=== PATIENT | female | born 1960 | race Caucasian/White ===

== ENCOUNTER → 2016-05-31 | Outpatient (CLI) | payer BC ==
[2016-05-31 14:35] LABS: Basophils % (A) 1 %; CH 31.8; Eosinophils # (A) 0.2 k/uL (0-0.7); Eosinophils % (A) 3 %; HCT 41.1 % (34.0-46.0); HDW 2.66; HGB 13.4 gm/dL (11.4-16.0); Luc # (Auto) 0.15; Luc % (Auto) 3; Lymphocytes # (A) 1.7 k/uL (1.0-4.8); Lymphocytes % (A) 33 %; MCH 31.5 pg (25.0-35.0); MCHC 32.6 g/dL (31.0-37.0); MCV 96.8 fL (80.0-100.0); Mean Platelet Volume 6.9; Monocytes # (A) 0.3 k/uL (0-1.0); Monocytes % (A) 5 %; Neutrophils # (A) 2.8 k/uL (1.3-7.7); Neutrophils % (A) 55 %; RBC 4.24 m/uL (3.80-5.40); RDW 13.4 % (11.5-15.5); WBC 5.2 k/uL (3.8-10.6)
== END | disposition home or self-care (01) ==
LOC: LABPAT 14:02
PROVIDERS: ATTEND Obstetrics & Gynecology
DX: Z01.810 Encounter for preprocedural cardiovascular examination (principal); Z01.812 Encounter for preprocedural laboratory examination; I10 Essential (primary) hypertension
CPT/HCPCS: 36415; 85025; 93005

== ENCOUNTER → 2016-05-31 | Outpatient (CLI) | payer BC ==
--- NOTE | 2016-06-03 12:19 | MM ---
Reason for exam: screening (asymptomatic). Last mammogram was performed 1 year and 2 months ago. History: Patient is postmenopausal. Family history of breast cancer in 2 paternal aunts at age 50 and breast cancer in paternal grandmother. Taking estrogen for 1 year. Taking progesterone for 2 years. Physical Findings: A clinical breast exam by your physician is recommended on an annual basis and results should be correlated with mammographic findings. MG Screening Mammo w CAD Bilateral CC and MLO view(s) were taken. Prior study comparison: April 10, 2015, bilateral MG screening mammo w CAD. March 22, 2014, bilateral MG screening mammo w CAD. The breast tissue is heterogeneously dense. This may lower the sensitivity of mammography. Asymmetric breast tissue in the right breast 2-3cm from nipple, 12 o'clock with associated indeterminate microcalcifications. This finding is changed when compared with previous exams. ASSESSMENT: Incomplete: need additional imaging evaluation, BI-RAD 0 RECOMMENDATION: Special view mammogram of the right breast. If lesion persists on supplemental views, image directed ultrasound is recommended. [facility] will attempt to contact patient to return for supplemental views and ultrasound if indicated.
== END | disposition home or self-care (01) ==
LOC: RADMAMWWP 14:18
PROVIDERS: ATTEND Obstetrics & Gynecology
DX: Z12.31 Encounter for screening mammogram for malignant neoplasm of breast (principal); Z80.3 Family history of malignant neoplasm of breast

== ENCOUNTER 2016-06-10 06:44 | Day surgery (SDC) | payer BC ==
--- NOTE | 2016-06-06 08:53 | HP ---
DATE OF ADMISSION: 06/10/2016 This is a 56-year-old white female, 3, para 2-0-1-2, who presents with a history of postmenopausal bleeding. An ultrasound was performed in the office on 05/07/2016 which revealed increased endometrial thickness, 1.2 cm, with slightly irregular texture. In addition, there were several uterine fibroids noted. Ovaries appeared normal bilaterally. Patient has consented for hysteroscopy and dilatation and curettage of the uterine cavity. Review of systems is otherwise negative. PAST MEDICAL HISTORY: Significant for abnormal Pap smear in the past, most recent Pap smear within normal limits. She has a history of hypertension, molluscum contagiosum, as well as myocardial infarction in 2011. Past surgical history is significant for sections x2, 1990 and 1992, and colposcopy 2012. CURRENT MEDICATIONS: 1. Activella daily. 2. Baby aspirin daily. 3. Biotin daily. 4. Fish oil daily. 5. Multivitamin daily. 6. Carvedilol 3 times daily. ALLERGIES: None known. FAMILY HISTORY: Significant for breast cancer, hypertension, myocardial infarction, lung cancer. REPRODUCTIVE HISTORY: Two sections, one spontaneous miscarriage not requiring D&C. SOCIAL HISTORY: Patient is , and she is hairdresser at a local salon, she has never been a smoker, she has occasional alcohol use. On exam, this is a pleasant white female, 5 foot 2.25 inches, 107 pounds, BMI 19, vital signs are stable including a blood pressure today of 140/82, patient is afebrile. The HEENT exam reveals no thyromegaly, good dentition, no cervical lymphadenopathy, normal range of motion in the neck. Breast exam reveals breasts to be bilaterally symmetric, no skin dimpling, nipple discharge, axillary adenopathy or discernible lesions or masses. Chest is clear to auscultation in all parada anteriorly and posteriorly. Cardiac exam reveals regular rate and rhythm without murmur, click or rub. Abdomen is soft and tender, scaphoid, active bowel sounds, no organosplenomegaly, no CVA tenderness. Extremities reveal no edema, good range of motion, good peripheral pulses. On pelvic exam, cervix is small, firm and mobile, uterus is anteverted, small and mobile, nontender. Adnexa are negative to palpation bilaterally. Rectal exam reveals FIT negative stool, good tone. IMPRESSION: Postmenopausal bleeding with increased endometrial thickness noted sonographically, menopausal on hormone replacement therapy. PLAN: We will proceed with hysteroscopy, dilatation and curettage of the uterine cavity. The risks, benefits, and alternatives of this plan have been reviewed in detail. All questions have been answered. The ACOG pamphlet had been given to the patient, which she has reviewed. Risks of potential bleeding, infection, perforation or damage to the bowel, bladder, ureters, the uterine cavity have all been described. All questions have been answered.
[2016-06-06 15:39] VITALS: BMI 18.6
[~2016-06-10 06:44] MED LIST: DEXAMETHASONE SOD PHOSPHATE 10 MG/ML 1 ML VIAL IV ONE; HYDROmorphone 1 MG/ML 1 ML SYRINGE IVP PRN; LACTATED RINGERS 1,000 ML IV SCH; LIDOCAINE 1% 20 ML VIAL (10MG/ML) FOR IV START INTRADERMA PRN; Pre Op ABX Message 1 EACH MISC MISCELLANE ONE; SCOPOLAMINE 1.5MG/72HR PATCH TRANSDERM ONE
[2016-06-10] MEDS ORDERED: ONDANSETRON 4 MG/2 ML VIAL IVP ONE (07:11)
[2016-06-10] MEDS ORDERED: MIDAZOLAM 2 MG/2 ML VIAL ONE (07:34)
[2016-06-10] MEDS ORDERED: KETOROLAC 30 MG/ML 1 ML VIAL ONE (07:34)
[2016-06-10] MEDS ORDERED: PROPOFOL 10 MG/ML 20 ML VIAL IV ONE (07:34)
--- NOTE | 2016-06-10 07:59 | P.OP ---
Date of Procedure: 06/10/16 Preoperative Diagnosis: This menopausal bleeding, increased endometrial thickness sonographically Postoperative Diagnosis: Cervical stenosis Procedure(s) Performed: Dilatation and curettage of the uterine cavity, hysteroscopy Anesthesia: DELMARA Surgeon: Melody Goff Hotel Reservation Agent #1: Stated None Estimated Blood Loss (ml): 20 IV fluids (ml): 200 Urine output (ml): 100 Pathology: other (Uterine curettings) Condition: stable Disposition: PACU Description of Procedure: Patient is brought to the operating suite where a general anesthetic is administered without difficulty. She's placed in the dorsal lithotomy position. The appropriate timeout is performed to assure proper patient and procedural identification. No antibiotics are deemed necessary. The cervix, vagina, perineal bodies are all prepped and draped in usual sterile fashion. Examination under anesthesia reveals a small mobile anteverted uterus, negative adnexa bilaterally. Bladder is drained for approximately 100 mL of clear yellow urine. Weighted speculum was placed into the vagina and the anterior lip of the cervix is grasped with a double-tooth tenaculum. Upon inspecting the cervix, it is noted to be stenotic. The very smallest dilator is gently teased into the endocervical canal for the initiation of dilatation. The Hanks dilators are then used easily and in succession. The hysteroscope was placed into the cavity and with saline infusion the cavity is distended and inspected. There is a fair amount of tissue noted, no obvious polyps, fibroids, septa or defects. Bilateral ostia are noted. The hysteroscope was removed. Cervix is then dilated to 18 mm. A medium sharp curette is used and the cavity is curetted in all 4 quadrants. The "cry the uterus" is appreciated. Polyp forceps are then utilized to assure that the cavity is completely cleared. All instruments are removed. All sponge needle and enhancement counts are correct. Patient is brought back to the recovery room in very good condition with stable vital signs including blood pressure 132/79, pulse 71, 98% O2 saturation. Toradol is given prior to leaving the operative suite. Complications: None.
[2016-06-10 08:11] VITALS: TEMP 97.2
[2016-06-10 08:47] VITALS: RESP 18
[2016-06-10 09:07] VITALS: BP 137/80; PULSE 78
== END 2016-06-10 09:20 | disposition home or self-care (01) ==
LOC: OR 06:44
PROVIDERS: ATTEND Obstetrics & Gynecology
DX: N84.0 Polyp of corpus uteri (principal); N88.2 Stricture and stenosis of cervix uteri; N95.0 Postmenopausal bleeding; R93.8 Abnormal findings on diagnostic imaging of other specified body structures; D25.9 Leiomyoma of uterus, unspecified; I10 Essential (primary) hypertension; I25.2 Old myocardial infarction; Z79.82 Long term (current) use of aspirin; Z79.899 Other long term (current) drug therapy
CPT/HCPCS: 81025; 88305; 58558; J2250; J1100; J2405; J1885; J2704

== ENCOUNTER → 2016-06-12 | Outpatient (CLI) | payer BC ==
--- NOTE | 2016-06-12 11:20 | MM ---
Reason for exam: additional evaluation requested from abnormal screening. Last mammogram was performed less than 1 month ago. History: Patient is postmenopausal. Family history of breast cancer in 2 paternal aunts at age 50 and breast cancer in paternal grandmother. Taking estrogen beginning at age 54. Taking progesterone beginning at age 54. Physical Findings: Nurse did not find any significant physical abnormalities on exam. MG Work Up Mamm w CAD RT LM, CC with magnification, and LM with magnification view(s) were taken of the right breast. Prior study comparison: May 31, 2016, bilateral MG screening mammo w CAD. April 10, 2015, bilateral MG screening mammo w CAD. No significant new findings when compared with previous films. These results were verbally communicated with the patient and result sheet given to the patient on 06/12/16. ASSESSMENT: Incomplete: need additional imaging evaluation, BI-RAD 0 RECOMMENDATION: Ultrasound of the right breast.
--- NOTE | 2016-06-12 11:22 | USB ---
Reason for exam: additional evaluation requested from abnormal screening. History: Patient is postmenopausal. Family history of breast cancer in 2 paternal aunts at age 50 and breast cancer in paternal grandmother. Taking estrogen beginning at age 54. Taking progesterone beginning at age 54. US Breast Workup Limited RT Right breast ultrasound demonstrates a 8 x 5 x 7mm irregular, spiculated, solid, hypoechoic lesion at 12 o'clock and a 4 x 3 x 3mm oval, cystic lesion at 1 o'clock. These results were verbally communicated with the patient and result sheet given to the patient on 06/12/16. ASSESSMENT: Suspicious, BI-RAD 4 RECOMMENDATION: Ultrasound core biopsy of the right breast. Called with mammographic findings and has scheduled an appointment for the patient for 06/17/16 at 3:[address] Goff. PRELIMINARY REPORT CALLED AND FAXED TO DR. GOFF ON 06/12/16 AT 300/TMP.
== END | disposition home or self-care (01) ==
LOC: RADMAMWWP 09:19
PROVIDERS: ATTEND Obstetrics & Gynecology
DX: R92.8 Other abnormal and inconclusive findings on diagnostic imaging of breast (principal)
CPT/HCPCS: 76642; G0206

== ENCOUNTER → 2016-07-29 | Day surgery (SDC) | payer BC ==
[~2016-07-29] MED LIST changes: +BACITRACIN OINT 1 EACH PACKET TOPICAL ONE; -DEXAMETHASONE SOD PHOSPHATE 10 MG/ML 1 ML VIAL IV ONE; -HYDROmorphone 1 MG/ML 1 ML SYRINGE IVP PRN; -LACTATED RINGERS 1,000 ML IV SCH; -LIDOCAINE 1% 20 ML VIAL (10MG/ML) FOR IV START INTRADERMA PRN; +LIDOCAINE 1% INJ 10MG/ML (20 ML MDV) ONE; -Pre Op ABX Message 1 EACH MISC MISCELLANE ONE; -SCOPOLAMINE 1.5MG/72HR PATCH TRANSDERM ONE
--- NOTE | 2016-07-29 09:38 | USB ---
EXAMINATION TYPE: US biopsy breast VAD RT, MG diagnostic mammo RT wo CAD DATE OF EXAM: 07/29/2016 9:16 AM CLINICAL HISTORY: N63 BREAST LUMP. TECHNIQUE: Ultrasound guided core biopsy of right 12:00 breast. COMPARISON: NONE FINDINGS: The procedure of ultrasound guided core biopsy was explained to the patient. Benefits, alternatives, and risks were discussed. An informed consent was then obtained. The patient was placed in supine positioning for imaging and for the procedure. The overlying skin was prepped and draped in usual sterile fashion. Lidocaine was used as anesthetic into the skin and subcutaneous tissue up to area of concern in the right breast. A raj was made with surgical scalpel. 5 core samples were obtained. Under ultrasound guidance, a 12-gauge vacuum assisted biopsy gun device was used to obtain core samples. Following this, a biopsy clip was left in lesion. Postprocedural mammogram demonstrates deployment of clip device. The patient tolerated the procedure well without any immediate complication. The patient was kept in the radiology department for short stay after the procedure and then discharged home in stable condition. IMPRESSION: Successful, uncomplicated ultrasound guided core biopsy of area of concern in the right breast, full pathology results to follow. Pathology Results: Malignant BREAST, RIGHT, ULTRASOUND CORE BIOPSY: DUCT CARCINOMA IN SITU. Recommendation Surgical consult of the right breast. ZOILA
--- NOTE | 2016-07-30 09:10 | USB ---
Reason for exam: clinical finding. History: Patient is postmenopausal. Family history of breast cancer in 2 paternal aunts at age 50 and breast cancer in paternal grandmother. Taking estrogen beginning at age 54. Taking progesterone beginning at age 54. US Breast LT Left breast ultrasound includes all four quadrants, the retroareolar region and axilla. Finding demonstrate a 6 x 3 x 4mm lobular, hypoechoic cluster at 1 o'clock, a 3 x 2 x 3mm oval, too small to characterize lesion at 3 o'clock, a 4 x 1 x 4mm oval, mixed lesion at 6 o'clock and a 6 x 3 x 5mm oval, mixed lesion at 11 o'clock. These results were verbally communicated with the patient and result sheet given to the patient on 07/29/16. ASSESSMENT: Probably benign, BI-RAD 3 RECOMMENDATION: Ultrasound of the left breast in 6 months.
== END ==
LOC: RADUSWWP 07:48 → EDSTATUS 08:00
PROVIDERS: ATTEND Surgery
DX: D05.11 Intraductal carcinoma in situ of right breast (principal)
CPT/HCPCS: 88305; 88342; 88341; 19083; 76641; G0206; A4648; J2001

== ENCOUNTER 2016-08-21 09:35 | Day surgery (SDC) | payer BC ==
[2016-08-20 10:02] VITALS: BMI 18.6
--- NOTE | 2016-08-21 07:18 | P.GSHP ---
History of Present Illness H&P Date: 08/21/16 Chief Complaint: Right breast cancer 56 yrs old female presents with biopsy proven right breast DCIS at 12 o clock. She presented with abnormal mammogram , followed by right breast US. No prior breast bx. No back pain, muscle pain. No weight loss or loss of appetite. - Review of Systems All systems: negative (stated in [place]) Past Medical History Past Medical History: Hypertension, Myocardial Infarction ([place]) Last Myocardial Infarction Date:: 2011 History of Any Multi-Drug Resistant Organisms: None Reported Past Surgical History: Section, Heart Catheterization Additional Past Surgical History / Comment(s): D&C , Breast bx. Past Anesthesia/Blood Transfusion Reactions: No Reported Reaction Past Psychological History: No Psychological Hx Reported Smoking Status: Never smoker Past Alcohol Use History: None Reported Past Drug Use History: None Reported - Past Family History Mother Family Medical History: No Reported History Medications and Allergies Home Medications Medication Instructions Recorded Confirmed Type Ascorbic Acid [Vitamin C] 500 mg PO DAILY 06/06/16 08/20/16 History Aspirin 81 mg PO DAILY 06/06/16 08/20/16 History Biotin 5 mg PO DAILY 06/06/16 08/20/16 History Carvedilol [Coreg] 6.25 mg PO HS 06/06/16 08/20/16 History Carvedilol [Coreg] 12.5 mg PO QAM 06/06/16 08/20/16 History Estrogen(Unknown Dose) 1 tab PO DAILY 06/06/16 08/20/16 History [place]-3 Fatty Acids/Fish Oil [Fish 1 each PO DAILY 06/06/16 08/20/16 History Oil 1,000 mg Softgel] Calcium Carbonate [Calcium] 600 mg PO DAILY 08/20/16 08/20/16 History Allergies Allergy/AdvReac Type Severity Reaction Status Date / Time No Known Allergies Allergy Verified 08/20/16 09:42 Surgical - Exam HEENT: No pallor, no icterus Lymphatic: No axillary, inguinal and cervical swellings. Respiratory: Bilateral breath sound present Cardiovascular: S1, S2 present Abdomen: Soft, nontender, non distended , no hepatosplenomegaly Breast- Right breast -no well defined mass , no nipple retraction or skin changes Results - Imaging Additional studies: Right breast US and mammogram reviewed. Assessment and Plan (1) Hypertension Status: Acute (2) Ductal carcinoma in situ (DCIS) of right breast Status: Acute Plan: 1. Right breast wire loc lumpectomy 2. Informed consent obtained . 3. Risks , benefits and potential complications explained. . Bleeding, infection , positive margins requiring re -excision discussed 4. Post surgery radiation and endocrine therapy discussed 5. Radiation and medical oncology consult 6. Ancef 2 gm [id number] 7. Bilateral SCDs 8. Heparin 5000 Units SQx 1
[~2016-08-21 09:35] MED LIST changes: -BACITRACIN OINT 1 EACH PACKET TOPICAL ONE; +DEXAMETHASONE SOD PHOSPHATE 10 MG/ML 1 ML VIAL IV ONE; +FAMOTIDINE 20 MG/2 ML VIAL IV PRN; +HEPARIN SODIUM,PORCINE 5,000 UNIT/ML 1 ML VIAL SQ ONE; +HYDROmorphone 1 MG/ML 1 ML SYRINGE IVP PRN; +LACTATED RINGERS 1,000 ML IV SCH; +LIDOCAINE 1% 20 ML VIAL (10MG/ML) FOR IV START INTRADERMA PRN; -LIDOCAINE 1% INJ 10MG/ML (20 ML MDV) ONE; +MIDAZOLAM 2 MG/2 ML VIAL IV PRN; +Pre Op ABX Message 1 EACH MISC MISCELLANE ONE; +SCOPOLAMINE 1.5MG/72HR PATCH TRANSDERM ONE
[2016-08-21] MEDS ORDERED: ALPRAZolam 0.5 MG TAB PO STA (10:04)
[2016-08-21] MEDS ORDERED: LIDOCAINE 1% INJ 10MG/ML (20 ML MDV) SQ ONE (10:53)
[2016-08-21] MEDS ORDERED: LIDOCAINE 1% INJ 10MG/ML (20 ML MDV) ONE (11:59)
[2016-08-21] MEDS ORDERED: PROPOFOL 10 MG/ML 20 ML VIAL IV ONE (11:59)
[2016-08-21] MEDS ORDERED: MIDAZOLAM 2 MG/2 ML VIAL ONE (11:59)
[2016-08-21] MEDS ORDERED: SUCCINYLCHOLINE CHLORIDE 100 MG/5 ML SYR IV ONE (11:59)
[2016-08-21] MEDS ORDERED: fentaNYL (PF) 50 MCG/ML 2 ML AMP ONE (11:59)
[2016-08-21] MEDS ORDERED: ONDANSETRON 4 MG/2 ML VIAL ONE (11:59)
[2016-08-21] MEDS ORDERED: SODIUM CHLORIDE 0.9% 50 ML with ceFAZolin 2,000 MG IV ONE ×2 (12:20)
[2016-08-21] MEDS ORDERED: BUPIVACAIN-EPI 0.25%-1:200,000 30 ML VIAL SQ ONE ×2 (12:32)
--- NOTE | 2016-08-21 13:27 | MM ---
EXAM: Needle localization with wire placement. CLINICAL HISTORY: Newly diagnosed right-sided breast cancer TECHNIQUE: Needle localization with wire placement and surgical excision of area of concern in the right breast. COMPARISON: Right breast mammogram and ultrasound July 29, 2016 and older studies. FINDINGS: The procedure of needle localization with wire placement and than surgical excision was explained to the patient. Benefits, alternatives, and risks were discussed. An informed consent was then obtained. The shortest pathway for procedure was chosen. Shortest pathway was medial approach. The overlying skin was prepped and draped in usual sterile fashion. Lidocaine buffered with bicarbonate was used as anesthetic into the skin and subcutaneous tissue up to the level of area of concern. A 5 cm needle was used. It was placed via a medial approach under mammographic guidance. Subsequent 90 degrees mammogram show the needle to be in satisfactory position relative to the targeted area. At this point, wire was placed and the needle was withdrawn. The wire was fixed to patient's skin. Images were marked for surgeon. The patient tolerated the procedure well without any immediate complication. The patient was kept in the radiology department for short stay after the procedure and then taken to surgery for surgical excision. Targeted biopsy clip and wire are identified in specimen mammogram. The patient was kept in hospital for short stay after the procedure and then discharged home in stable condition. IMPRESSION: Successful, uncomplicated needle localization with wire placement and surgical excision of targeted biopsy clip in the right breast, full pathology results to follow. Pathology Results: Malignant A. BREAST, RIGHT: DUCTAL CARCINOMA IN SITU (DCIS), MARGINS NEGATIVE. BACKGROUND PROLIFERATIVE FIBROCYSTIC CHANGES AND INTRADUCTAL PAPILLOMA. SEE SURGICAL PATHOLOGY CANCER CASE SUMMARY. B. BREAST, RIGHT, NEW SUPERIOR MARGIN, EXCISION: BENIGN SKIN, SUBCUTANEOUS TISSUE AND BREAST TISSUE WITH PROCEDURAL RELATED CHANGES. NEGATIVE FOR DCIS. Recommendation Appropriate oncologic management. MTDD
[2016-08-21] MEDS ORDERED: LACTATED RINGERS 1,000 ML IV ONE (13:28)
[2016-08-21 13:53] VITALS: TEMP 97
--- NOTE | 2016-08-21 13:56 | P.OP ---
Date of Procedure: 08/21/16 Preoperative Diagnosis: Right breast cancer, DCIS at 12 o clock Postoperative Diagnosis: Same Procedure(s) Performed: Right breast wire localization lumpectomy Insertion of biosorb , low profile 3x2 cm Total tissue removed =18 gm Implants: BioZorb 3x2 cm, low profile Lot no. [id number] Exp: 2018-10-21 Anesthesia: GETA, local Surgeon: Stacy Valdivia Estimated Blood Loss (ml): 5 Pathology: other Condition: stable Disposition: PACU Indications for Procedure: 56 years old female presents with right breast DCIS at 12 o'clock position. She underwent wire localization by radiology. Operative Findings: Patient has small breast. The wire entered the skin between 12 and 1 o clock superiorly in the direction of nipple. Additional anterior superior shave margin sent which included skin( anterior margin) and black ink as the new superior margin Description of Procedure: The mammogram films from wire localization biopsy were reviewed. The patient was brought to the operating room and placed in supine position with both arms out. General anesthesia was given as per anesthesia team. The excess wire was cut and right breast was prepped using ChloraPrep. Sterile drapes were applied. A timeout was performed to verify correct patient, correct procedure and correct side. Patient was confirmed to receive perioperative IV antibiotics , heparin 5000 units subcutaneous injection for DVT prophylaxis and bilateral SCDs. The wire was exiting the skin between 12 and 1 o clock. A 3 cm horizontal skin incision was made along natural skin crease along the superior areola border overlying the wire. Superior and inferior subcutaneous flaps were raised in the direction of wire. A 2 cm circumferential breast tissue was removed around the wire and breast beyond the tip of the wire was included in the specimen. The specimen was then labeled with different colors as per the protocol. It was sent off as a specimen for pathology. The resulting defect was irrigated with normal saline and checked for hemostasis. Excision was carried deep to the level of chest wall and superiorly additional margin was taken including skin and subcutaneous . The defect measured 5.2x 4.1x1.7 cm with additional superior margin including a rim of skin measuring 3.4x 2.6x0.8 cm A low profile 3x2 cm Biozorb was sutured in the cavity which was sutured to chest wall with 3-0 Vicryl. Total tissue removed 16gm + 2gm = 18 gm.The resulting defect was closed in 3 layers using running 3-0 Quill to approximate the surrounding breast tissue, interrupted sutures of 3-0 Vicryl to approximate deep dermis, followed by running subcuticular stitches of 4-0 Monocryl. Dermabond skin glue was applied. The sponge, instrument and needle count were correct 2. Phone formation received during surgery that the area of concern along with the clip and wire was included in the specimen. Xray of the specimen reviewed. Patient tolerated the procedure well and was taken to post anesthesia care unit in stable condition. Final Pathologic Diagnosis A. BREAST, RIGHT: DUCTAL CARCINOMA IN SITU (DCIS), MARGINS NEGATIVE. BACKGROUND PROLIFERATIVE FIBROCYSTIC CHANGES AND INTRADUCTAL PAPILLOMA. SEE SURGICAL PATHOLOGY CANCER CASE SUMMARY. B. BREAST, RIGHT, NEW SUPERIOR MARGIN, EXCISION: BENIGN SKIN, SUBCUTANEOUS TISSUE AND BREAST TISSUE WITH PROCEDURAL RELATED CHANGES. NEGATIVE FOR DCIS. Notes SURGICAL PATHOLOGY CANCER CASE SUMMARY - DCIS OF THE BREAST (Resection) Procedure: Excision with wire guided localization. Specimen Laterality: Right. Size (Extent) of DCIS: Estimated size (extent) of DCIS: at least 5 mm by direct measurement. Histologic Type: Ductal carcinoma in situ. Classified as Tis (DCIS). Nuclear Grade: Grade 1-2, see comment. Necrosis: Present, central (expansive comedo necrosis). Margins: Margins uninvolved by DCIS. Distance of DCIS from Closest Margin: less than 2 mm, orange inked (lateral) margin. See comment. Pathologic Staging (pTNM): Primary Tumor: Ductal carcinoma in situ (pTis (DCIS)). Regional Lymph Nodes: Regional lymph nodes cannot be assessed (pNX). Distant Metastasis: Not applicable. Additional Pathologic Findings: Intraductal papilloma, margins negative. Proliferative fibrocystic changes including focal usual type ductal hyperplasia , microcalcifications and focal fibroadenomatoid hyperplasia. Previous biopsy site changes. Ancillary Studies: ER and ID studies were performed on the previous core biopsy ([id number]). Comment: Sections examined show a focus of residual grade 2 DCIS adjacent to the previous biopsy site measuring 5 mm in greatest dimension seen in blocks A6 and A7. This focus measures 2 mm from the nearest black inked (superior) margin. CK 5/6 and p63 immunoperoxidase stains performed on blocks A6 and A7 and evaluated with appropriate controls highlight a myoepithelial layer surrounding the atypical ducts. The atypical intraductal epithelial cells are negative for CK 5/6. The immunostaining results confirm DCIS. Additionally, there is a secondary focus of grade 1 DCIS away from the biopsy cavity measuring 3 mm in greatest dimension, identified in block A4. This focus measures less than 2 mm from the closest (orange inked/lateral) margin. Gross Description A. Specimen is labeled right breast and consists of a 16 gram oriented right lumpectomy specimen that measures 5.2 cm from medial to lateral, 4.1 cm from anterior to posterior and 1.7 cm from superior to inferior. A wire localization needle enters on the medial aspect and the specimen is accompanied by a radiograph and a picture showing a circled radiologic clip. The specimen is inked by surgeon as follows: anterior blue, inferior green, superior black, medial yellow, lateral orange and posterior alexandra. The specimen is serially sectioned beginning at the end opposite the needle tip insertion (orange ink) and near central is a white mass with lobulated borders that measure 0.7 x 0.7 x 0.4 cm. The mass grossly comes to within 0.3 cm of the closest black inked margin and the clip is identified adjacent to the mass. Throughout the remaining parenchya are areas of dense, white, nodular and cystic fibrous tissue which aggregate to approximately 40% of the parenchyma. The remaining parenchyma is grossly normal yellow adipose tissue and no other discrete lesions or masses are identified or palpated. Each cross section of the mass is sampled or entirely submitted sequentially from lateral to medial in 10 cassettes with first two cross sections entirely submitted in cassette 1, next six cross sections sampled in cassettes 2-4 (two cross sections sampled each cassette), one cross section sampled in cassette 5, full cross section demonstrating entire mass in cassette 6-7 (each full cross section bisected), next 4 cross sections sampled in cassettes 8-9 (two cross sections sampled each cassette), three last cross sections in cassette 10 with two cross sections sampled and last cross section entirely submitted. 10CFSS B. Specimen is labeled right breast tissue and consists of a 2 gram unoriented dome shaped portion of fibroadipose tissue with one surface inked black by surgeon indicating new superior margin. The specimen measures 3.4 x 2.6 cm and measures 0.8 cm from old superior margin to new superior margin. At one end of the specimen is a 2.4 x 0.6 cm ellipse of alfredo puckered skin which exhibits a 0.8 cm long linear well healed scar. The surface opposite the black ink (old margin) is inked orange and the specimen serially sectioned. Cut surfaces are comprised of grossly normal yellow adipose tissue with no discrete lesions, masses or nodules identified or palpated. Entirely and sequentially submitted in 3 cassettes. 3CFNS (VH) Fixation Time SPECIMEN FIXATIVE TYPE: SP Buffered 10% Formalin COLLECTION TO FIXATION TIME: Less than 1 hour FORMALIN FIXATION TIME: 30 hours, 22 minutes (In Fixative: 13:08, 08/21/16. Out of Fixative: 7:30 PM, , 08/22/16.) Primary invasive carcinomas are referred to the reference laboratory for ER, ID and HER2 testing and DCIS for ER and ID. Reference laboratory will automatically reflex equivocal IHC HER2 results based on CAP/ASCO HER2 Guidelines. Test results are reportedly separately. CAP/ASCO HER2 guidelines recommend that the tissue fixation window should be between 6 and 72 hours. When fixation time is prolonged beyond the 72 hours, the prolonged fixation could be a possible cause for negative results, and alternative testing methods, such as FISH, should be considered if the HER2 IHC is negative.
[2016-08-21] MEDS ORDERED: KETOROLAC 30 MG/ML 1 ML VIAL IVP ONE (14:44)
[2016-08-21] MEDS ORDERED: HYDROcodone/APAP 5-325MG 1 EACH TAB PO ONE (15:07)
[2016-08-21 15:36] VITALS: RESP 18
[2016-08-21 15:56] VITALS: BP 142/85; PULSE 75
== END 2016-08-21 16:11 | disposition home or self-care (01) ==
LOC: OR 09:35
PROVIDERS: ATTEND Surgery
DX: D05.11 Intraductal carcinoma in situ of right breast (principal); D24.1 Benign neoplasm of right breast; I25.2 Old myocardial infarction; I10 Essential (primary) hypertension; Z79.899 Other long term (current) drug therapy; Z79.82 Long term (current) use of aspirin
CPT/HCPCS: 19301; 88342; 88307; 88341; 76098; 19281; C1713; J2250; J1644; J1100; J2405; J2001; J3010; J1885; J0690; J0330; J2704

== ENCOUNTER → 2017-06-13 | Outpatient (CLI) | payer BC ==
--- NOTE | 2017-06-16 07:31 | MM ---
Reason for exam: additional evaluation requested from prior study. Last mammogram was performed 10 months ago. History: Patient is postmenopausal and has history of breast cancer at age 56. Family history of breast cancer in 2 paternal aunts at age 50 and breast cancer in paternal grandmother. Radiation therapy of the right breast, September 2016. Malignant MG pre op needle loc RT of the right breast, August 21, 2016. Lumpectomy of the right breast, August 21, 2016. Malignant US biopsy breast VAD RT of the right breast, July 29, 2016. Took estrogen beginning at age 54. Took progesterone beginning at age 54. Physical Findings: Nurse did not find any significant physical abnormalities on exam. MG Diagnostic Mammo w CAD TABATHA Bilateral CC and MLO view(s) were taken. Prior study comparison: July 29, 2016, right breast MG diagnostic mammo RT wo CAD. Asymmetric breast tissue in the right breast consistent with post treatment change with post operative changes. These results were verbally communicated with the patient and result sheet given to the patient on 06/13/17. ASSESSMENT: Benign, BI-RAD 2 RECOMMENDATION: Follow-up diagnostic mammogram of both breasts in 1 year.
== END | disposition home or self-care (01) ==
LOC: RADMAMWWP 15:27
PROVIDERS: ATTEND Radiology Radiation Oncology
DX: Z08 Encounter for follow-up examination after completed treatment for malignant neoplasm (principal); Z85.3 Personal history of malignant neoplasm of breast
CPT/HCPCS: 77066

== ENCOUNTER → 2020-01-06 | Outpatient (CLI) | payer BC ==
--- NOTE | 2020-01-07 10:02 | MM ---
Reason for exam: additional evaluation requested from prior study. Last mammogram was performed 2 years and 7 months ago. History: Patient is postmenopausal and has history of breast cancer at age 56. Family history of breast cancer in 2 paternal aunts at age 50 and breast cancer in paternal grandmother. Radiation therapy of the right breast, September 2016. Malignant MG pre op needle loc RT of the right breast, August 21, 2016. Lumpectomy of the right breast, August 21, 2016. Malignant US biopsy breast VAD RT of the right breast, July 29, 2016. Took estrogen for 2 years beginning at age 54. Took progesterone for 2 years beginning at age 54. Physical Findings: Nurse did not find any significant physical abnormalities on exam. MG 3D Diag Mammo W/Cad TABATHA Bilateral CC, MLO, and XCCL view(s) were taken. Prior study comparison: June 13, 2017, bilateral MG diagnostic mammo w CAD TABATHA. July 29, 2016, right breast MG diagnostic mammo RT wo CAD. The breast tissue is heterogeneously dense. This may lower the sensitivity of mammography. Post surgical changes right upper inner quadrant. No significant new findings when compared with previous films. These results were verbally communicated with the patient and result sheet given to the patient on 01/06/20. ASSESSMENT: Benign, BI-RAD 2 RECOMMENDATION: Routine screening mammogram of both breasts.
== END | disposition home or self-care (01) ==
LOC: RADMAMWWP 14:45
PROVIDERS: ATTEND Obstetrics & Gynecology
DX: Z08 Encounter for follow-up examination after completed treatment for malignant neoplasm (principal); Z85.3 Personal history of malignant neoplasm of breast
CPT/HCPCS: 77062; 77066

== ENCOUNTER → 2021-02-06 | Outpatient (CLI) | payer BC ==
[2021-02-06 21:45] LABS: ALT 24 U/L (8-44); AST 24 U/L (13-35); Chol/HDL Ratio 5.06 Ratio; LDL Cholesterol,Calculated 192.3 mg/dL (0.0-131.0)
== END | disposition home or self-care (01) ==
LOC: LABWHC1 12:55
PROVIDERS: ATTEND Internal Medicine Interventional Cardiology
DX: E78.2 Mixed hyperlipidemia (principal)
CPT/HCPCS: 36415; 80061; 84450; 84460

== ENCOUNTER 2021-02-08 08:14 | Day surgery (SDC) | payer BC ==
[2021-02-07 09:20] VITALS: BMI 20.9
--- NOTE | 2021-02-07 20:18 | P.HPOR ---
History of Present Illness H&P Date: 02/07/21 Chief Complaint: Right intra-articular 5th metacarpal base fracture ubjective: This is a 60 year old female that presents today for initial evaluation regarding a right hand injury that occurred on 02/02/21. Patient was hitting garbage to compact it down in a garbage can with a clenched fist and accidentally hit the garbage can and had immediate pain and swelling in the right hand. She was seen at [facility] urgent care where x-rays were taken and she was placed in a ulnar gutter splint. She has pain, swelling and bruising isolated to the ulnar aspect of the 5th metacarpal base. 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 Physical Examination: RUE: AIN/PIN/Radial/Ulnar/Median motor intact. Radial/Ulnar/Median SILT. 2+/4 Radial/Ulnar pulses palpated. bruising/ swelling present. Limited ROM of hand due to pain. 5 degree internal rotation deformity of the right small finger with semi-clenched fist. Imaging: X-Rays of the right hand demonstrate a comminuted intra-articular 5th metacarpal base fracture extensive metaphyseal comminution and radial displacement of the distal fragment. Impression: 1.) Right 5th metacarpal base fracture, comminuted, displaced. Plan: Diagnosis and treatment options were discussed with the patient. Due to the amount of displacement, rotational deformity, and unstable nature of her comminuted intra-articular 5th metacarpal base fracture in addition to her need to use the hand as soon as possible as a communications department chair I recommend surgical intervention. Risks and benefits of surgery including bleeding, damage to surrounding tissue, infection, need for further surgery, possible need for hardware removal in the future or in office were discussed and she wishes to proceed with surgery. We will plan for 5th MC base CRPP vs ORIF. The patient was agreeable with this plan of action and will will have basic labs drawn the day of surgery and EKG and will be scheduled for surgery this 02/08/21. A new ulnar gutter splint was applied to the extremity in office today. She is to be non-weight bearing, we discussed she will likely not have full use of the hand until post op week 6 to 8 which also may vary depending on if CRPP vs ORIF is performed. -Pedro Clark DO Orthopedic Hand/Upper Extremity Surgeon Past Medical History Past Medical History: Cancer, Hypertension, Myocardial Infarction (LA), Osteoarthritis (OA) Additional Past Medical History / Comment(s): fx. right baby finger on Friday- wearing splint, breast cancer 4 yrs. ago-had surg. & radiation Last Myocardial Infarction Date:: 2011 History of Any Multi-Drug Resistant Organisms: None Reported Past Surgical History: Breast Surgery, Section, Heart Catheterization Additional Past Surgical History / Comment(s): D&C , Breast bx., right breast lumpectomy Past Anesthesia/Blood Transfusion Reactions: No Reported Reaction Smoking Status: Never smoker - Past Family History Father Family Medical History: Cancer Mother Family Medical History: No Reported History Medications and Allergies Home Medications Medication Instructions Recorded Confirmed Type Ascorbic Acid [Vitamin C] 500 mg PO DAILY 06/06/16 02/07/21 History Aspirin 81 mg PO DAILY 06/06/16 02/07/21 History Biotin 5 mg PO DAILY 06/06/16 02/07/21 History [place]-3 Fatty Acids/Fish Oil [Fish 1 each PO DAILY 06/06/16 02/07/21 History Oil 1,000 mg Softgel] carvediloL [Coreg] 6.25 mg PO HS 06/06/16 02/07/21 History carvediloL [Coreg] 12.5 mg PO QAM 06/06/16 02/07/21 History Calcium Carbonate [Calcium] 600 mg PO DAILY 08/20/16 02/07/21 History Glucos Sul 2Kcl/MSM/Chond/C/Mn 1 each PO DAILY 02/07/21 02/07/21 History [Glucosamine Chondroitin Cap] Vitamin B Complex 1 each PO DAILY 02/07/21 02/07/21 History Allergies Allergy/AdvReac Type Severity Reaction Status Date / Time No Known Allergies Allergy Verified 02/07/21 09:18 Physical Examination Osteopathic Statement: *. No significant issues noted on an osteopathic structural exam other than those noted in the History and Physical/Consult.
[~2021-02-08 08:14] MED LIST changes: -DEXAMETHASONE SOD PHOSPHATE 10 MG/ML 1 ML VIAL IV ONE; -FAMOTIDINE 20 MG/2 ML VIAL IV PRN; -HEPARIN SODIUM,PORCINE 5,000 UNIT/ML 1 ML VIAL SQ ONE; +HYDROmorphone 0.5 MG/0.5 ML SYRINGE IVP PRN; -HYDROmorphone 1 MG/ML 1 ML SYRINGE IVP PRN; +LIDOCAINE 1% (10MG/ML) FOR IV START INTRADERMA PRN; -LIDOCAINE 1% 20 ML VIAL (10MG/ML) FOR IV START INTRADERMA PRN; -MIDAZOLAM 2 MG/2 ML VIAL IV PRN; -Pre Op ABX Message 1 EACH MISC MISCELLANE ONE; -SCOPOLAMINE 1.5MG/72HR PATCH TRANSDERM ONE
[2021-02-08] MEDS ORDERED: ONDANSETRON 4 MG/2 ML VIAL ONE (08:50)
[2021-02-08] MEDS ORDERED: DEXAMETHASONE SOD PHOSPHATE 4 MG/ML 1 ML VIAL IVP ONE (09:05)
[2021-02-08 09:42] LABS: Basophils % (A) 1 %; Eosinophils # (A) 0.2 k/uL (0-0.7); Eosinophils % (A) 4 %; HCT 40.3 % (34.0-46.0); HGB 13.9 gm/dL (11.4-16.0); Lymphocytes # (A) 1.2 k/uL (1.0-4.8); Lymphocytes % (A) 26 %; MCH 32.5 pg (25.0-35.0); MCHC 34.6 g/dL (31.0-37.0); MCV 93.9 fL (80.0-100.0); Mean Platelet Volume 7.4; Monocytes # (A) 0.2 k/uL (0-1.0); Monocytes % (A) 5 %; Neutrophils # (A) 2.8 k/uL (1.3-7.7); Neutrophils % (A) 62 %; Platelet Count 314 k/uL (150-450); RBC 4.29 m/uL (3.80-5.40); RDW 13.3 % (11.5-15.5); WBC 4.5 k/uL (3.8-10.6)
[2021-02-08 09:51] LABS: Potassium 4.3 mmol/L (3.5-5.1)
[2021-02-08] MEDS ORDERED: LIDOCAINE 1% INJ 10MG/ML (20 ML MDV) ONE (10:03)
[2021-02-08] MEDS ORDERED: ePHEDrine 50 MG/ML 1 ML AMP ONE (10:03)
[2021-02-08] MEDS ORDERED: PROPOFOL 10 MG/ML 20 ML VIAL IV ONE (10:03)
[2021-02-08] MEDS ORDERED: SODIUM CHLORIDE 0.9% 100 ML BAG ONE (10:03)
[2021-02-08] MEDS ORDERED: HYDROmorphone (PF) 1 MG/ML ONE (10:03)
[2021-02-08] MEDS ORDERED: fentaNYL (PF) 50 MCG/ML 2 ML AMP ONE (10:03)
[2021-02-08] MEDS ORDERED: MIDAZOLAM 2 MG/2 ML VIAL ONE (10:03)
[2021-02-08] MEDS ORDERED: ceFAZolin 1,000 MG VIAL ONE (10:03)
[2021-02-08] MEDS ORDERED: LIDOCAINE 1% INJ 10MG/ML (20 ML MDV) SQ ONE ×2 (10:38)
[2021-02-08] MEDS ORDERED: BUPIVACAINE (PF) 0.5% 30 ML VIAL SQ ONE ×2 (10:38)
[2021-02-08] MEDS ORDERED: LACTATED RINGERS 1,000 ML IV ONE ×2 (11:04→14:33)
[2021-02-08 12:27] VITALS: TEMP 97
[2021-02-08] MEDS ORDERED: ONDANSETRON 4 MG/2 ML VIAL IVP ONE (13:22)
[2021-02-08] MEDS ORDERED: hydrALAZINE HCL 20 MG/ML 1 ML VIAL ONE (14:10)
[2021-02-08] MEDS ORDERED: hydrALAZINE HCL 20 MG/ML 1 ML VIAL IVP ONE (14:13)
[2021-02-08] MEDS ORDERED: HYDROcodone/APAP 5-325MG 1 EACH TAB ONE (14:27)
[2021-02-08] MEDS ORDERED: HYDROcodone/APAP 5-325MG 1 EACH TAB PO ONE (14:27)
[2021-02-08 15:12] VITALS: RESP 16
[2021-02-08] MEDS ORDERED: KETOROLAC 30 MG/ML 1 ML VIAL ONE (15:25)
[2021-02-08] MEDS ORDERED: KETOROLAC 15 MG/ML 1 ML VIAL IVP ONE (15:30)
[2021-02-08 17:09] VITALS: BP 154/88; PULSE 82
--- NOTE | 2021-02-08 20:04 | P.OP ---
Date of Procedure: 02/08/21 Preoperative Diagnosis: Right intra-articular 5th metacarpal base fracture, displaced. Postoperative Diagnosis: Right intra-articular 5th metacarpal base fracture, displaced. Procedure(s) Performed: 1.) Open reduction internal fixation of intra-articular fifth metacarpal base fracture, comminuted. Implants: 0.045 K-Wires x 4 Anesthesia: CODY Surgeon: Pedro Clark Estimated Blood Loss (ml): 10 Pathology: none sent Condition: stable Disposition: PACU Description of Procedure: This is a 60 year old female who sustained a comminuted, displaced intra- articular 5th metacarpal base fracture when she punched the side of a garbage can. She presents today for surgical fixation of her fracture due to the displaced intra-articular nature of her unstable fracture. Risks and benefits of surgery were discussed with the patient including bleeding, damage to surrounding tissue, infection, need for further surgery as well as risks of anesthesia including pulmonary embolism and even and the patient wished to proceed with surgical intervention. The patient was seen in the pre-operative area by myself. Consent and H&P were completed and updated. The correct extremity was marked in the pre-operative area by myself and all other questions were answered. Operative Narrative: The patient was brought to the operating room by the department of anesthesia. They remained on the portable stretcher and a rolling hand table was brought to the side of the operative extremity. Pre-operative time out was performed indicating the correct patient, procedure and laterality. All in the room agreed. Pre-operative antibiotics were given prior to skin incision. The patient was then drifted off to sleep by the department of anesthesia. A nonsterile tourniquet was then applied to the operative extremity and the right upper extremity was then prepped and draped in normal sterile fashion. The operative extremity was the exsanguinated with an esmarch bandage and the tourniquet was inflated to 250mmHg. Mini C-arm was utilized and reduction maneuver involving traction of the fifth digit was attempted under live fluoroscopy however the fracture was unable to be acceptably aligned with closed reduction therefore decision was made to proceed with open reduction. Longitudinal incision was made overlying the proximal two- thirds of the fifth metacarpal shaft with 15 blade scalpel. Blunt dissection was performed through subcutaneous tissue. The dorsal ulnar sensory nerve branch was identified and protected. EDM and EDC to the small finger were mobilized and retracted radially. Periosteum was incised directly over the 5th metacarpal down to the fracture site. Fracture hematoma was evacuated. There appeared to be extensive metaphyseal comminution present with a large longitudinal intra- articular split present. Attempt to perform plating with a synthes 1.5mm T-plate was made. After attempting to drill the proximal fragments for screw fixation, no secure fixation was able to be achieved with plate and screw construct due to extensive volar comminution. There appeared to be roughly 4-5 separate pieces, therefore decision was made to proceed with open reduction and K-wire fixation. Two 0.045 K wires were inserted through the ulnar skin and under direct visualization the articular surface was held reduced anatomically and the K- wires were driven across the main intra-articular split fragments and advanced into the base of the 4th metacarpal. Longitudinal traction was then applied to the digit and the shaft was then held reduced to the comminuted metaphyseal portion of the base and two 0.045 k wires were then inserted from ulnar to radial from the 5th to the 4th metacarpal shaft with purchase of 4 cortices for each k-wire. Reduction was then confirmed on AP/Lat and oblique views. The patients fingers were then passively flexed to check rotational alignment and nondenominational of rotational alignment was achieved with a normal cascade of digits and a anatomically reduced 5th CMC joint surface appreciated on imaging. The wound was then copiously irrigated with sterile saline. Periosteal closure was performed with 4-0 Monocryl suture followed by skin closure with several interrupted 4-0 Monocryl sutures followed by a running subcuticular stitch. Pin edges were cut and Jergen ball pin caps were placed on 3 of the 4 K-wires. Mastisol and steri strips were then applied. 10cc of a 50:50 mixture of .5% b upivicaine and 1% lidocaine was injected into the the surrounding tissues. Sterile dressing consisting of 4x4s, adaptic, webril and a plaster ulnar gutter splint was applied. Tourniquet was let down and the fingers had immediate and normal perfusion. The patient was then woken by the department of anesthesia and transferred to PACU in stable condition. Pedro Clark D.O. Orthopedic Hand/Upper Extremity Surgeon
== END 2021-02-08 17:10 | disposition home or self-care (01) ==
LOC: OR 08:14
PROVIDERS: ATTEND Orthopaedic Surgery Hand Surgery
DX: S62.316A Displaced fracture of base of fifth metacarpal bone, right hand, initial encounter for closed fracture (principal); X79.XXXA Intentional self-harm by blunt object, initial encounter; I10 Essential (primary) hypertension; M19.90 Unspecified osteoarthritis, unspecified site; I25.2 Old myocardial infarction; Z85.3 Personal history of malignant neoplasm of breast; Z92.3 Personal history of irradiation; Z79.899 Other long term (current) drug therapy
CPT/HCPCS: 80051; 85025; 26615; C1713; J2250; J0360; J1100; J2405; J0690; J2001; J3010; J1170; J1885; J2704

== ENCOUNTER → 2022-01-11 | Outpatient (CLI) | payer BC ==
[2022-01-11 16:58] LABS: ALT 19 U/L (8-44); AST 22 U/L (13-35); Chol/HDL Ratio 4.29 Ratio
== END | disposition home or self-care (01) ==
LOC: LABWHC1 08:38
PROVIDERS: ATTEND Internal Medicine Clinical Cardiac Electrophysiology
DX: E78.2 Mixed hyperlipidemia (principal)
CPT/HCPCS: 36415; 80061; 84450; 84460